=== PATIENT | female | born 1985 | race American Indian/Alaskan Native ===

== ENCOUNTER 2020-01-09 00:41 | Emergency (ER) | payer MEDICAID ==
[2020-01-09 01:32] LABS: Hematocrit 37.8 % (30.3-42.9); Hemoglobin 12.8 gm/dl (10.1-14.3); Mean Corpuscular HGB Conc 34 % (30-34); Mean Corpuscular Volume 101 fl (79-97); Platelet Count 225 K/mm3 (140-440); Red Blood Count 3.73 M/mm3 (3.65-5.03); Red Cell Distribution Width 13.9 % (13.2-15.2)
[2020-01-09 02:02] LABS: Albumin 4.4 g/dL (3.9-5); Calcium 9.5 mg/dL (8.4-10.2)
[2020-01-09 02:28] VITALS: BP 123/69
[2020-01-09 03:23] LABS: Basophils % (Manual) 0 % (0.0-1.8); Eosinophils % (Manual) 0 % (0.0-4.3); Total Cells Counted 100
[2020-01-09 03:24] LABS: Platelet Estimate Consistent w Auto; Target Cells Rare
[2020-01-09 03:30] LABS: Bilirubin,Urine NEG (Negative); Blood,Urine SM (Negative); Color,Urine Straw (Yellow); Protein,Urine <15 mg/dL mg/dL (Negative); Urobilinogen,Urine < 2.0 mg/dL (<2.0); WBC,Urine < 1.0 /HPF (0.0-6.0)
[2020-01-09 03:34] LABS: HCG Qualitative,Urine Negative (Negative)
[2020-01-09] MEDS ORDERED: ACETAMINOPHEN 500 MG TAB PO ONE (03:51)
[2020-01-09] MEDS ORDERED: IBUPROFEN 600 MG TAB PO ONE (03:51)
--- NOTE | 2020-01-09 05:23 | Ultrasound Report ---
CLINICAL DATA: Pelvic pain TECHNICAL DATA: Ultrasound, pelvic (nonobstetric), real-time with image documentation; transabdominal and transvagina l imaging with Doppler was performed. FINDINGS: The uterus is of normal size and echogenicity. There are no uterine masses. Endometrial thickness is 1.1 cm The right and left ovaries are of symmetric size and echogenicity. There are no ovarian or adnexal ma sses. Doppler imaging demonstrates normal vascular flow to both ovaries. There is no significant quantity of free fluid dependently within the pelvis. IMPRESSION: Unremarkable routine ultrasound. GUIDELINES FOR IMAGING OF OVARIAN--ADNEXAL CYST: WOMEN OF REPRODUCTIVE AGE: 1. Cysts <=3 cm: Normal physiologic findings; at the discretion of the interpreting physician whether or not to describe them in the imaging report; do not need follow-up. 2. Cysts >3 and <=5 cm: Should be described in the imaging report with a statement that they are almo st certainly benign; do not need follow-up. 3. Cysts >5 and <=7 cm: Should be described in the imaging report with a statement that they are almo st certainly benign; yearly follow-up with US recommended. 4. Cysts >7 cm: Since these may be difficult to assess completely with US, further imaging with magne tic resonance (MR) or surgical evaluation should be considered. POSTMENOPAUSAL WOMEN: 1. Cysts <=1 cm: Are clinically inconsequential; at the discretion of the interpreting physician whet her or not to describe them in the imaging report; do not need follow-up. 2. Cysts >1 and <=7 cm: Should be described in the imaging report with statement that they are almost certainly benign; yearly follow-up, at least initially, with US recommended. Some practices may opt to increase the lower size threshold for follow-up from 1 cm to as high as 3 cm. One may opt to sonu nue follow-up annually or to decrease the frequency of follow-up once stability or decrease in size h as been confirmed. Cysts in the larger end of this range should still generally be followed on a regu lar basis. 3. Cysts >7 cm: Since these may be difficult to assess completely with US, further imaging with MR or surgical evaluation should be considered. Signer Name: Cornelius Parker MD Signed: 01/09/2020 5:18 AM Workstation Name: [id number]
[2020-01-09] MEDS ORDERED: AZITHROMYCIN 250 MG TAB PO ONE (05:37)
[2020-01-09] MEDS ORDERED: LIDOCAINE-MPF (1%) 10 MG/1 ML VIAL 5 ML INFILTRATI ONE (05:37)
--- NOTE | 2020-01-09 05:43 | Emergency Department Report ---
ED Female HPI - General Chief complaint: Abdominal Pain Stated complaint: SEVERE ABDOMINAL PAIN Source: patient Mode of arrival: Ambulatory Limitations: No Limitations - History of Present Illness Initial comments: Patient is a A0 34-year-old -[place] female with no past medical history presents to the ED with complaint of acute onset persistent intermittent pelvic pain with vaginal bleeding for the last 1 month, worse in the last 1 week. Patient states that in the last 4 weeks she has had her menstrual cycle twice and about 4 days ago she started spotting again with severe pelvic pain. Patient states that the symptoms have been persistent and in the last 12 hours she has not been able to sleep because of severe pelvic pain with vaginal discharge and nausea. Patient also complains of persistent dyspareunia. Patient denies dizziness, syncope, fever, chills, cough, chest pain, headache, dizziness, sore throat, diarrhea, vomiting or low back pain. MD Complaint: vaginal bleeding, pelvic pain -: Sudden, month(s) (1) Location: suprapubic Radiation: non-radiating Severity scale (0 -10): 8 Quality: cramping, sharp, aching Consistency: intermittent Improves with: none Worsens with: intercourse, menstrual period Are you Now?: No Last Menstrual Period: 10/31/19 EDC: 08/06/20 Associated Symptoms: denies other symptoms, vaginal discharge, vaginal bleeding, abdominal pain. denies: nausea/vomiting, fever/chills, headaches, loss of appetite, dysuria, hematuria, rash, seizure, shortness of breath, syncope, weakness, other - Related Data Sexually active: Yes : 1 Para: 1 A: 0 Previous Rx's Medication Instructions Recorded Last Taken Type Ibuprofen [Motrin] 800 mg PO Q8HR PRN #30 tablet 01/09/20 Unknown Rx Ondansetron [Zofran Odt] 4 mg PO Q6HR PRN #15 tab.rapdis 01/09/20 Unknown Rx metroNIDAZOLE [Flagyl] 500 mg PO Q12HR #14 tab 01/09/20 Unknown Rx traMADoL [Ultram] 50 mg PO Q6HR PRN #12 tablet 01/09/20 Unknown Rx Allergies Allergy/AdvReac Type Severity Reaction Status Date / Time No Known Allergies Allergy Unverified 01/09/20 01:00 ED Review of Systems ROS: Stated complaint: SEVERE ABDOMINAL PAIN Other details as noted in HPI Constitutional: denies: chills, fever Eyes: denies: eye pain, eye discharge, vision change ENT: denies: ear pain, throat pain Respiratory: denies: cough, shortness of breath, wheezing Cardiovascular: denies: chest pain, palpitations Endocrine: no symptoms reported Gastrointestinal: abdominal pain (Pelvic pain), nausea. denies: diarrhea Genitourinary: discharge, abnormal menses (Vaginal bleeding). denies: urgency, dysuria Musculoskeletal: denies: back pain, joint swelling, arthralgia Skin: denies: rash, lesions Neurological: denies: headache, weakness, paresthesias Psychiatric: denies: anxiety, depression Hematological/Lymphatic: denies: easy bleeding, easy bruising ED Past Medical Hx - Past Medical History Previous Medical History?: No - Surgical History Past Surgical History?: No - Social History Smoking Status: Current Every Day Smoker Substance Use Type: Alcohol, Marijuana - Medications Home Medications: Home Medications Medication Instructions Recorded Confirmed Last Taken Type Ibuprofen [Motrin] 800 mg PO Q8HR PRN #30 tablet 01/09/20 Unknown Rx Ondansetron [Zofran Odt] 4 mg PO Q6HR PRN #15 tab.rapdis 01/09/20 Unknown Rx metroNIDAZOLE [Flagyl] 500 mg PO Q12HR #14 tab 01/09/20 Unknown Rx traMADoL [Ultram] 50 mg PO Q6HR PRN #12 tablet 01/09/20 Unknown Rx ED Physical Exam - General Limitations: No Limitations General appearance: alert, in no apparent distress - Head Head exam: Present: atraumatic, normocephalic, normal inspection - Eye Eye exam: Present: normal appearance, PERRL, EOMI Pupils: Present: normal accommodation - ENT ENT exam: Present: normal exam, normal orophraynx, mucous membranes moist, TM's normal bilaterally, normal external ear exam - Neck Neck exam: Present: normal inspection, full ROM - Respiratory Respiratory exam: Present: normal lung sounds bilaterally. Absent: respiratory distress, wheezes, rales, rhonchi, chest wall tenderness, accessory muscle use, decreased breath sounds, other - Cardiovascular Cardiovascular Exam: Present: regular rate, normal rhythm, normal heart sounds. Absent: systolic murmur, diastolic murmur, rubs, gallop - GI/Abdominal GI/Abdominal exam: Present: soft, tenderness (Palpable suprapubic tenderness), normal bowel sounds. Absent: guarding, rebound, hyperactive bowel sounds, hypoactive bowel sounds, organomegaly - External exam: Present: normal external exam Speculum exam: Present: vaginal discharge, cervical discharge Bi-manual exam: Present: cervical motion tendernes, uterine tenderness, other (Female ED identification technician Ms. Ortega present during the pelvic exam) - Extremities Exam Extremities exam: Present: normal inspection, full ROM, normal capillary refill - Back Exam Back exam: Present: normal inspection, full ROM. Absent: tenderness, CVA tenderness (R), CVA tenderness (L), muscle spasm, paraspinal tenderness, vertebral tenderness - Neurological Exam Neurological exam: Present: alert, oriented X3, CN II-XII intact, normal gait, reflexes normal - Psychiatric Psychiatric exam: Present: normal affect, normal mood - Skin Skin exam: Present: warm, dry, intact, normal color. Absent: rash ED Course Vital Signs 01/09/20 00:52 Temperature 97.6 F Pulse Rate 70 Respiratory 18 Rate Blood Pressure 123/69 O2 Sat by Pulse 100 Oximetry ED Medical Decision Making - Lab Data Result diagrams: 01/09/20 01:17 01/09/20 01:17 - Radiology Data Radiology results: report reviewed, image reviewed Findings [facility] [address] [place] [address] Ultrasound Report Signed Patient: EDY YU MR# : [id number] : 1985 Acct:[id number] Age/Sex: 34 / F ADM Date: 01/09/20 Loc: ED Attending Dr: Ordering Physician: RENEE DEVI Date of Service: 01/09/20 Procedure(s): US pelvic complete Accession Number(s): [id number] cc: RENEE DEVI CLINICAL DATA: Pelvic pain TECHNICAL DATA: Ultrasound, pelvic (nonobstetric), real-time with image documentation; transabdominal and transvaginal imaging with Doppler was performed. FINDINGS: The uterus is of normal size and echogenicity. There are no uterine masses. Endometrial thickness is 1.1 cm The right and left ovaries are of symmetric size and echogenicity. There are no ovarian or adnexal masses. Doppler imaging demonstrates normal vascular flow to both ovaries. There is no significant quantity of free fluid dependently within the pelvis. IMPRESSION: Unremarkable routine ultrasound. GUIDELINES FOR IMAGING OF OVARIAN--ADNEXAL CYST: WOMEN OF REPRODUCTIVE AGE: 1. Cysts <=3 cm: Normal physiologic findings; at the discretion of the interpreting physician whether or not to describe them in the imaging report; do not need follow-up. 2. Cysts >3 and <=5 cm: Should be described in the imaging report with a statement that they are almost certainly benign; do not need follow-up. 3. Cysts >5 and <=7 cm: Should be described in the imaging report with a statement that they are almost certainly benign; yearly follow-up with US recommended. 4. Cysts >7 cm: Since these may be difficult to assess completely with US, further imaging with magnetic resonance (MR) or surgical evaluation should be considered. POSTMENOPAUSAL WOMEN: 1. Cysts <=1 cm: Are clinically inconsequential; at the discretion of the interpreting physician whether or not to describe them in the imaging report; do not need follow-up. 2. Cysts >1 and <=7 cm: Should be described in the imaging report with statement that they are almost certainly benign; yearly follow-up, at least initially, with US recommended. Some practices may opt to increase the lower size threshold for follow-up from 1 cm to as high as 3 cm. One may opt to continue follow-up annually or to decrease the frequency of follow-up once stability or decrease in size has been confirmed. Cysts in the larger end of this range should still generally be followed on a regular basis. 3. Cysts >7 cm: Since these may be difficult to assess completely with US, further imaging with MR or surgical evaluation should be considered. Signer Name: Cornelius Parker MD Signed: 01/09/2020 5:18 AM Workstation Name: [id number] Transcribed By: CAILIN Dictated By: Cornelius Parker MD Electronically Authenticated By: Cornelius Parker MD Signed Date/Time: 01/09/20517 DD/ 7 TD/TT: - Medical Decision Making This is a A0 34-year-old -[place] female with no past medical history presents to the ED with complaint of acute onset persistent intermittent pelvic pain with vaginal bleeding for the last 1 month, worse in the last 1 week. Patient states that in the last 4 weeks she has had her menstrual cycle twice and about 4 days ago she started spotting again with severe pelvic pain. Patient states that the symptoms have been persistent and in the last 12 hours she has not been able to sleep because of severe pelvic pain with vaginal discharge and nausea. Patient also complains of persistent dyspareunia. In the ED, patient is alert and oriented x3 and is not in distress. Patient was treated for pain in the ED and lab test results are reviewed and are all nonactionable. Wet prep test however was positive for Gardnerella vaginalis. Pelvic exam was positive for cervical motion tenderness. Patient was empirically treated for PID with Rocephin and azithromycin in the ED. Pelvic ultrasound showed no acute abnormalities. On reevaluation, patient's pain is well controlled medication. Patient was discharged home on antibiotics for bacterial vaginosis and pain medications and was advised to follow-up with her [employer] physician or primary care physician in 5 to 7 days for reevaluation. Patient was advised return to the ED immediately if symptoms get worse. - Differential Diagnosis Dysmenorrhea; UTI; PID; ovarian cyst; fibroids; STD; trichomonas Critical care attestation.: If time is entered above; I have spent that time in minutes in the direct care of this critically ill patient, excluding procedure time. ED Disposition Clinical Impression: Acute pelvic inflammatory disease (PID), Bacterial vaginosis, Dysmenorrhea Abdominal pain Qualifiers: Abdominal location: lower abdomen, unspecified Qualified Code(s): R10.30 - Lower abdominal pain, unspecified Disposition: DC-01 TO HOME OR SELFCARE Is pt being admited?: No Does the pt Need Aspirin: No Condition: Stable Instructions: Abdominal Pain (ED), Bacterial Vaginosis (ED), Pelvic Inflammatory Disease (ED), Dysmenorrhea (ED) Additional Instructions: Maintain a complete pelvic rest, take medication as advised, drink plenty of fluids and follow-up with your primary care physician or [employer] physician in 5 to 7 days for reevaluation or return to the ED immediately if symptoms get worse. Prescriptions: metroNIDAZOLE [Flagyl] 500 mg PO Q12HR #14 tab Ibuprofen [Motrin] 800 mg PO Q8HR PRN #30 tablet PRN Reason: Pain , Severe (7-10) traMADoL [Ultram] 50 mg PO Q6HR PRN #12 tablet PRN Reason: Pain Ondansetron [Zofran Odt] 4 mg PO Q6HR PRN #15 tab.rapdis PRN Reason: Nausea Referrals: MIKE HADLEY MD [Staff Physician] - 3-5 Days Forms: STI Treatment and Prevention Time of Disposition: 06:24 Print Language: PRYDEINIG
== END 2020-01-09 06:40 | disposition home or self-care (01) ==
LOC: ED 00:41
DX: N94.6 Dysmenorrhea, unspecified (principal); N73.0 Acute parametritis and pelvic cellulitis; N76.0 Acute vaginitis; R10.9 Unspecified abdominal pain; B96.89 Other specified bacterial agents as the cause of diseases classified elsewhere; F12.90 Cannabis use, unspecified, uncomplicated; F17.200 Nicotine dependence, unspecified, uncomplicated; Z79.899 Other long term (current) drug therapy
CPT/HCPCS: 36415; 76856; 80053; 81001; 81025; 85007; 85025; 87210; 87591; 96372; 99284; J0696

== ENCOUNTER 2020-03-06 14:58 | Emergency (ER) | payer MEDICAID ==
[2020-03-06 15:11] VITALS: BP 116/81
--- NOTE | 2020-03-06 15:14 | Emergency Department Report ---
ED General Adult HPI - General Chief complaint: Earache Stated complaint: RT EAR/HEAR PAIN Time Seen by Provider: 03/06/20 15:10 Source: patient Mode of arrival: Ambulatory Limitations: No Limitations - History of Present Illness Initial comments: 34-year-old -[place] female presents with complaints of right hip pain x1 week. She denies any drainage from the ear, fever/chills/sweats, cough, hearing loss, or facial pain/pressure. She rates her current pain as a 6/10 in severity and denies trying any [id number] medications to aid in her pain. She does admit to some congestion. - Related Data Previous Rx's Medication Instructions Recorded Last Taken Type Ondansetron [Zofran Odt] 4 mg PO Q6HR PRN #15 tab.rapdis 01/09/20 Unknown Rx metroNIDAZOLE [Flagyl] 500 mg PO Q12HR #14 tab 01/09/20 Unknown Rx traMADoL [Ultram] 50 mg PO Q6HR PRN #12 tablet 01/09/20 Unknown Rx Ibuprofen [Motrin 800 MG tab] 800 mg PO Q8HR PRN #30 tablet 03/06/20 Unknown Rx Levocetirizine Dihydrochloride 5 mg PO QHS PRN #10 tablet 03/06/20 Unknown Rx [Xyzal] predniSONE [Deltasone] 20 mg PO BID 3 Days #6 tablet 03/06/20 Unknown Rx Allergies Allergy/AdvReac Type Severity Reaction Status Date / Time No Known Allergies Allergy Unverified 01/09/20 01:00 ED Review of Systems ROS: Stated complaint: RT EAR/HEAR PAIN Other details as noted in HPI Constitutional: denies: chills, diaphoresis, fever, malaise, weakness Eyes: denies: eye pain, eye discharge, vision change ENT: ear pain, congestion. denies: throat pain, dental pain, hearing loss Respiratory: denies: cough, shortness of breath Endocrine: denies: excessive sweating Skin: denies: rash, change in color Neurological: denies: headache, paresthesias Hematological/Lymphatic: denies: swollen glands ED Past Medical Hx - Past Medical History Previous Medical History?: No - Surgical History Past Surgical History?: No - Social History Smoking Status: Current Every Day Smoker Substance Use Type: Alcohol - Medications Home Medications: Home Medications Medication Instructions Recorded Confirmed Last Taken Type Ondansetron [Zofran Odt] 4 mg PO Q6HR PRN #15 tab.rapdis 01/09/20 Unknown Rx metroNIDAZOLE [Flagyl] 500 mg PO Q12HR #14 tab 01/09/20 Unknown Rx traMADoL [Ultram] 50 mg PO Q6HR PRN #12 tablet 01/09/20 Unknown Rx Ibuprofen [Motrin 800 MG tab] 800 mg PO Q8HR PRN #30 tablet 03/06/20 Unknown Rx Levocetirizine Dihydrochloride 5 mg PO QHS PRN #10 tablet 03/06/20 Unknown Rx [Xyzal] predniSONE [Deltasone] 20 mg PO BID 3 Days #6 tablet 03/06/20 Unknown Rx ED Physical Exam - General Limitations: No Limitations General appearance: alert, in no apparent distress - Head Head exam: Present: atraumatic, normocephalic - Eye Eye exam: Present: normal appearance. Absent: scleral icterus - ENT ENT exam: Present: normal exam, normal orophraynx, mucous membranes moist, TM's normal bilaterally, normal external ear exam - Neck Neck exam: Present: normal inspection, full ROM. Absent: tenderness, lymphadenopathy - Respiratory Respiratory exam: Present: normal lung sounds bilaterally. Absent: respiratory distress - Cardiovascular Cardiovascular Exam: Present: regular rate - Neurological Exam Neurological exam: Present: alert, oriented X3, normal gait - Psychiatric Psychiatric exam: Present: normal affect, normal mood - Skin Skin exam: Present: warm, dry, intact, normal color. Absent: rash, cyanosis, diaphoretic, pallor, ecchymosis ED Course Vital Signs 03/06/20 15:07 Temperature 98 F Pulse Rate 74 Respiratory 20 Rate Blood Pressure 116/81 O2 Sat by Pulse 100 Oximetry ED Medical Decision Making - Medical Decision Making 34-year-old -[place] female presents with complaints of right hip pain x1 week. She denies any drainage from the ear, fever/chills/sweats, cough, hearing loss, or facial pain/pressure. She rates her current pain as a 6/10 in severity and denies trying any [id number] medications to aid in her pain. She does admit to some congestion. No abnormalities noted of the external ear canal or tympanic membrane on exam. Patient has normal range of motion of the neck without cervical lymphadenopathy. Ear pain possibly due to congestion. Will treat with antihistamine and prednisone. Recommend follow-up with primary care provider in 3 to 5 days, referral for [facility] provided. She is well-appearing, her vitals are normal, she is stable for discharge home. Strict return precautions were d iscussed in detail with patient who verbalizes understanding. Critical care attestation.: If time is entered above; I have spent that time in minutes in the direct care of this critically ill patient, excluding procedure time. ED Disposition Clinical Impression: Right ear pain Disposition: DC- TO HOME OR SELFCARE Is pt being admited?: No Condition: Stable Instructions: Earache, Adult Prescriptions: Levocetirizine Dihydrochloride [Xyzal] 5 mg PO QHS PRN #10 tablet PRN Reason: Congestion predniSONE [Deltasone] 20 mg PO BID 3 Days #6 tablet Ibuprofen [Motrin 800 MG tab] 800 mg PO Q8HR PRN #30 tablet PRN Reason: pain Referrals: [facility] [Provider Group] - 3-5 Days
== END 2020-03-06 15:19 | disposition home or self-care (01) ==
LOC: ED 14:58
DX: H92.01 Otalgia, right ear (principal); F17.200 Nicotine dependence, unspecified, uncomplicated; Z79.1 Long term (current) use of non-steroidal anti-inflammatories (NSAID); Z79.899 Other long term (current) drug therapy
CPT/HCPCS: 99282

== ENCOUNTER 2020-08-15 15:57 | Emergency (ER) | payer OTHER, MEDICAID ==
[2020-08-15 17:19] VITALS: BP 116/63
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
== END 2020-08-15 17:30 | disposition home or self-care (01) ==
LOC: ED 15:57
DX: S16.1XXA Strain of muscle, fascia and tendon at neck level, initial encounter (principal); Z79.899 Other long term (current) drug therapy; F17.200 Nicotine dependence, unspecified, uncomplicated; V49.49XA Driver injured in collision with other motor vehicles in traffic accident, initial encounter; Y93.89 Activity, other specified; Y92.488 Other paved roadways as the place of occurrence of the external cause; Y99.8 Other external cause status
CPT/HCPCS: 99281

== ENCOUNTER 2020-11-10 13:40 | Emergency (ER) | payer MEDICAID, OTHER | END 2020-11-10 22:50 | disposition left against medical advice (07) | LOC: ED 13:40 | DX: N23 Unspecified renal colic (principal); Z53.21 Procedure and treatment not carried out due to patient leaving prior to being seen by health care provider ==